=== PATIENT | female | born 1990 | race Caucasian/White ===

== ENCOUNTER 2019-06-24 09:07 | Emergency (ER) | payer BC, OTHER ==
[2019-06-24 09:44] VITALS: BP 124/83
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
== END 2019-06-24 10:37 | disposition home or self-care (01) ==
LOC: UCCORT 09:07
DX: S16.1XXA Strain of muscle, fascia and tendon at neck level, initial encounter (principal); V43.52XA Car driver injured in collision with other type car in traffic accident, initial encounter; Y92.410 Unspecified street and highway as the place of occurrence of the external cause
CPT/HCPCS: 72040; 99202; G0463